=== PATIENT | male | born 1975 | race Caucasian/White ===

== ENCOUNTER 2019-12-22 20:30 | Emergency (ER) | payer OTHER, SELFPAY ==
--- NOTE | ~2019-12-22 | CT_ITS ---
EXAMINATION: CT cervical spine wo con DATE: 12/23/2019 00:16 INDICATION: Neck pain and altered mental status post fall. TECHNIQUE: Computed tomography (CT) of the cervical spine was performed without intravenous contrast. Automated exposure control and iterative reconstruction technique were employed. The dose-length pro duct was 359.19 mGy-cm. COMPARISON: None FINDINGS: Straightening of the normal lordosis in the upper cervical spine which could be positional or seconda ry to muscle spasm. Vertebral body heights are normal. No fractures. Mild disc height loss with moder ate bilateral uncovertebral osteoarthritis resulting in minimal to mild neural foraminal stenosis jaki aterally at C3-C4 and C5-C6. Mild uncovertebral osteoarthritis and minimal to mild facet osteoarthrit is at several additional levels. Lumbar spinal both the left and right. No significant central canal stenosis with small amount of atherosclerotic calcific a cyst at the left carotid bulb, minimal at th e right carotid bulb. There is heterogeneous attenuation of the thyroid with small coarse calcificati on in the left thyroid lobe. Visualized airway and apices of the lungs are clear. IMPRESSION: 1. Mild cervical spondylosis. No acute osseous abnormality. Reviewed, dictated and finalized at location A.
--- NOTE | ~2019-12-22 | CT_ITS ---
EXAMINATION: CT brain wo con DATE: 12/23/2019 00:15 INDICATION: Confusion post fall TECHNIQUE: Computed tomography (CT) of the head was performed without intravenous contrast. Sagittal and coronal reconstructions were performed. The mA was adjusted according to patient size. Iterative reconstruction technique was employed. The dose-length product was 681.00 mGy-cm. COMPARISON: None FINDINGS: No fracture. No acute intracranial hemorrhage, acute infarction or abnormal extra axial fluid collect ion. Ventricles are normal and symmetric. No mass/mass effect. Mucosal thickening at the right fronto ethmoidal recess. The orbits and mastoid air cells are normal. IMPRESSION: 1. Normal brain. No fracture or acute intracranial process. Reviewed, dictated and finalized at location A.
[2019-12-22 20:34] VITALS: BP 154/92; PULSE 83; RESP 18; TEMP 36.8; O2SAT 97
--- NOTE | 2019-12-22 21:35 | ECG_ITS ---
Measurements Intervals [place] Rate: 79 P: 65 NC: 136 QRS: 24 QRSD: 110 T: 47 QT: 384 QTc: 443 Interpretive Statements SINUS RHYTHM WITH MARKED SINUS ARRHYTHMIA MINIMAL Q WAVES- INFERIOR LEADS BORDERLINE T WAVE ABNORMALITY- ANTERIOR LEADS BASELINE ARTIFACT- AVR, AVL, AVF BORDERLINE ECG Electronically Signed On 12-23-2019 7:04:06 CDT by Xavier TRONCOSO
[2019-12-22 21:51] LABS: Basophils Absolute Auto 0.1 K/mm3 (0.0-0.1); Basophils Percent Auto 0.9 % (0.2-1.2); Eosinophils Absolute Auto 0.5 K/mm3 (0-0.3); Eosinophils Percent Auto 5.6 % (0-4.4); Hematocrit 36.3 % (42.0-52.0); Hemoglobin 12.5 g/dL (14.0-18.0); Immature Granulocyte Absolute 0.02 K/mm3 (0.00-0.031); Immature Granulocyte Percent A 0.2 % (0-0.5); Lymphocytes Absolute Auto 1.08 K/mm3 (0.9-3.2); Lymphocytes Percent Auto 11.9 % (18.3-44.2); Mean Corpuscular HGB Conc 34.4 g/dl (32-36); Mean Corpuscular Hemoglobin 30.1 pg (26-34); Mean Corpuscular Volume 87.5 fl (80-100); Mean Platelet Volume 12.5 fl (7.4-10.4); Monocytes Absolute Auto 0.6 K/mm3 (0.1-0.6); Neutrophils Absolute Auto 6.7 K/mm3 (1.3-6.7); Neutrophils Percent Auto 74.4 % (45.5-73.1); Platelet Count Result 213 k/mm3 (150-375); Red Blood Count 4.15 M/mm3 (4.6-6.20); Red Cell Distribution Width 12.8 % (11.5-14.5)
--- NOTE | 2019-12-22 22:00 | ECG_ITS ---
Measurements Intervals [place] Rate: 79 P: 65 OR: 136 QRS: 24 QRSD: 110 T: 47 QT: 384 QTc: 443 Interpretive Statements SINUS RHYTHM WITH MARKED SINUS ARRHYTHMIA MINIMAL Q WAVES- INFERIOR LEADS BORDERLINE T WAVE ABNORMALITY- ANTERIOR LEADS BASELINE ARTIFACT- AVR, AVL, AVF BORDERLINE ECG Electronically Signed On 12-23-2019 7:04:06 CDT by Xavier TRONCOSO
[2019-12-22 22:03] LABS: Alanine Aminotransferase 49 U/L (4-50); Albumin Level 4.5 g/dL (3.5-5.1); Alkaline Phosphatase 70 U/L (38-126); Aspartate Amino Transferase 85 U/L (17-59); Bilirubin,Total 0.6 mg/dL (0.2-1.3); Blood Urea Nitrogen 9 mg/dL (9-20); Calcium 9.4 mg/dL (8.4-10.2); Carbon Dioxide 25 mmol/L (22-30); Chloride 103 mmol/L (98-107); Estimated CRCL calculation 119 ml/min; Estimated Glomerular Filt Rate > 60; Glucose 118 mg/dL (75-110); Potassium 3.9 mmol/L (3.4-5.0); Sodium 137 mmol/L (137-145)
[2019-12-22 22:04] LABS: Ethanol < 10 mg/dL (<10)
--- NOTE | 2019-12-22 22:30 | ED.GENADULT ---
HPI - General Adult General Chief complaint: Unspecified <Ana Jurado MD - Last Filed: 12/23/19 10:21> Stated complaint: confusion <Ana Jurado MD - Last Filed: 12/23/19 10:21> Time Seen by Provider: 12/22/19 20:59 <Ana Jurado MD - Last Filed: 12/23/19 10:21> History of Present Illness HPI narrative: Patient is a male brought in by EMS for altered mental status. Patient reportedly as been acting erratic and his mother called EMS. Currently patient is sleeping would not wake up to answer questions. Patient can not provide any history due to altered mental status. <Ana Jurado MD - Last Filed: 12/23/19 10:21> Related Data Allergies/adverse reactions: Allergies Allergy/AdvReac Type Severity Reaction Status Date / Time No Known Allergies Allergy Verified 12/22/19 22:46 <Ana Jurado MD - Last Filed: 12/23/19 10:21> Review of Systems Review of Systems: ROS unobtainable: Yes unobtainable due to mental status <Ana Jurado MD - Last Filed: 12/23/19 10:21> [facility] Past Medical History Medical History: Medical History (Updated 12/23/19 @ 06:23 by Mitra Smith MD) Small bowel obstruction <Ana Jurado MD - Last Filed: 12/23/19 10:21> Surgical History Surgical History: Surgical History (Updated 12/23/19 @ 06:18 by Mitra Smith MD) History of intestinal surgery <Ana Jurado MD - Last Filed: 12/23/19 10:21> Social History Social History: Social History (Updated 12/23/19 @ 06:19 by Mitra Smith MD) Alcohol intake: current Alcohol use details: occasional Substance use type: marijuana <Ana Jurado MD - Last Filed: 12/23/19 10:21> Exam Const: General: no acute distress and well developed <Ana Jurado MD - Last Filed: 12/23/19 10:21> Orientation/consciousness: oriented to person, oriented to place and oriented to time <Ana Jurado MD - Last Filed: 12/23/19 10:21> HENMT: Head: normocephalic <Ana Jurado MD - Last Filed: 12/23/19 10:21> Ears: external ears normal <Ana Jurado MD - Last Filed: 12/23/19 10:21> General nose exam: Normal external nose present <Ana Jurado MD - Last Filed: 12/23/19 10:21> Eyes: General: appearance normal, both eyes and all related structures <Ana Jurado MD - Last Filed: 12/23/19 10:21> Conjunctivae: conjunctivae normal <Ana Jurado MD - Last Filed: 12/23/19 10:21> Neck: Neck: normal visual inspection and full ROM <Ana Jurado MD - Last Filed: 12/23/19 10:21> Chest: Chest palpation & inspection: normal inspection of the chest and no tenderness <Ana Jurado MD - Last Filed: 12/23/19 10:21> Resp: Effort & Inspection: normal respiratory effort <Ana Jurado MD - Last Filed: 12/23/19 10:21> Auscultation: clear to auscultation bilaterally <Ana Jurado MD - Last Filed: 12/23/19 10:21> Cardio: Rate: regular rate <Ana Jurado MD - Last Filed: 12/23/19 10:21> Rhythm: regular rhythm <Ana Jurado MD - Last Filed: 12/23/19 10:21> GI: GI Palp: No abdominal tenderness and Yes Soft to palpation <Ana Jurado MD - Last Filed: 12/23/19 10:21> Skin: General skin exam: normal color and turgor normal <Ana Jurado MD - Last Filed: 12/23/19 10:21> Trauma: abrasion (abrasion left elbow) <Ana Jurado MD - Last Filed: 12/23/19 10:21> Neuro: General: oriented to person, oriented to place and oriented to time <Ana Jurado MD - Last Filed: 12/23/19 10:21> Cognition (Neuro): normal cognition <Ana Jurado MD - Last Filed: 12/23/19 10:21> Other: lethargic, does not answer questions or follow commands <Ana Jurado MD - Last Filed: 12/23/19 10:21> Extrem: General: normal to inspection, full ROM and no pedal edema <Ana Jurado MD - Last Filed: 12/23/19 10:21> Psych: Appearance: grossly normal <Ana Jurado MD - Last Filed: 12/23/19 10:21> Mental Status: mental status grossly normal <Ana Jurado MD - Last Filed: 12/23/19 10:21> [facility]
--- NOTE | 2019-12-22 22:42 | PC.NURSE ---
pt was taken to CT, pt was uncooperative with CT staff, refused to sit on table, began running around room, kept talking in jumbled words making no sense. charge nurse called and pt was to be transported back to er. while pt was transferring back on stretcher, pt jumped to feet on stretcher shouting it was a skateboard, then pt jumped off stretcher and ran down meraz. pt was escorted back to stretcher and taken to ER. pt now in his assigned room , [facility].
--- NOTE | 2019-12-22 23:08 | PC.NURSE ---
pt was given urinal, pt used urinal then ran naked to next door and danced in front of pt. pt then escorted back to room 5, pt transferred to room 15, report to Josué. QUIRINO
[2019-12-22 23:16] LABS: Add Urine Microscopic? YES; Appearance Urine Clear (Clear); Bilirubin Urine Negative (Negative); Blood Urine Negative (Negative); Color Urine Yellow (Yellow); Glucose Urine UA Negative (Negative); Ketones Urine Trace mg/dL (Negative); Leukocyte Esterase Ur Negative LEU/UL (Negative); Mucus Urine Rare /lpf; Nitrate Urine Negative (Negative); Protein Urine Negative (Negative); RBC Urine 0-2 /hpf (0-2); Urobilinogen Urine Negative mg/dL (<2.0); WBC Urine 0-3 /hpf
[2019-12-22] MEDS: KETAMINE HCL 500 MG/10 ML VIAL 250 MG IM (23:29)
[2019-12-22] MEDS: TETANUS,DIPHTHERIA,AC PERTUSSIS ADULT (0.5 ML) BOOSTRIX IM (23:29)
--- NOTE | 2019-12-22 23:32 | PC.NURSE ---
ERP confirmed ketamine order for this pt.
[2019-12-23 00:22] VITALS: BP 136/73; PULSE 66; RESP 18; O2SAT 99
[2019-12-23 02:09] LABS: Amphetamine Screen Urine Negative (Negative); Barbiturate Screen Urine Negative (Negative); Benzodiazepines Screen Urine Negative (Negative); Cannabinoid Screen Urine Positive (Negative); Cocaine Screen Urine Negative (Negative); Methadone Screen Urine Negative (Negative); Opiate Screen Urine Negative (Negative); Phencyclidine Screen Urine Negative (Negative)
[2019-12-23 03:08] VITALS: BP 141/81; PULSE 48; RESP 18; TEMP 36.2; O2SAT 100
[2019-12-23 06:36] VITALS: BP 122/70; PULSE 78; RESP 18; O2SAT 98
== END 2019-12-23 06:36 | disposition home or self-care (01) ==
PROVIDERS: Emergency Provider Emergency Medicine
DX: R41.82 Altered mental status, unspecified (principal); Z23 Encounter for immunization
CPT/HCPCS: 36415; 70450; 72125; 80053; 80307; 81001; 85025; 90471; 90715; 93005; 96372; 96374; 99284; J2060